=== PATIENT | female | born 1955 | race Caucasian/White ===

== ENCOUNTER 2016-10-02 22:24 | Emergency (ER) | payer OTHER ==
[~2016-10-02] VITALS: Ht 167.6 cm; Wt 60.0 kg
[2016-10-02 22:29] VITALS: BP 128/79
[2016-10-03] MEDS ORDERED: BUPIVACAINE/PF 0.5% ONE (00:12)
[2016-10-03] MEDS ORDERED: BUPIVACAINE/PF-EPI 0.25% 1:200K SQ ONE (00:30)
== END 2016-10-03 00:48 | disposition home or self-care (01) ==
LOC: ED 23:59
DX: S92.912A Unspecified fracture of left toe(s), initial encounter for closed fracture (principal); X58.XXXA Exposure to other specified factors, initial encounter; Y93.89 Activity, other specified; Y92.89 Other specified places as the place of occurrence of the external cause; Y99.8 Other external cause status
CPT/HCPCS: 28515

== ENCOUNTER → 2017-04-06 | Outpatient (CLI) | payer OTHER | LOC: CFH 08:40 | PROVIDERS: ATTEND Family Medicine | DX: Z12.31 Encounter for screening mammogram for malignant neoplasm of breast (principal); K80.20 Calculus of gallbladder without cholecystitis without obstruction | CPT/HCPCS: 76705; G0202 ==

== ENCOUNTER → 2019-03-13 | Outpatient (CLI) | payer OTHER ==
[~2019-03-13] MED LIST: OMNIPAQUE 350 MG/ML, 100ML BOTTLE ONE
== END | disposition home or self-care (01) ==
LOC: CFH 11:01
PROVIDERS: ATTEND Family Medicine
DX: K86.2 Cyst of pancreas (principal); N28.1 Cyst of kidney, acquired; K86.9 Disease of pancreas, unspecified
CPT/HCPCS: 74170; 82565; Q9967

== ENCOUNTER → 2019-09-19 | Outpatient (CLI) | payer BC, OTHER | END | disposition home or self-care (01) | LOC: CFH 12:33 | PROVIDERS: ATTEND Internal Medicine Gastroenterology | DX: K86.2 Cyst of pancreas (principal); Z86.010 Personal history of colon polyps | CPT/HCPCS: 74170; 82565; Q9967 ==